=== PATIENT | female | born 1950 | race Caucasian/White ===

== ENCOUNTER 2022-08-20 05:17 | Inpatient (IN) | payer MEDICARE, MEDICAID ==
[2022-08-13 12:25] LABS: BASOPHILS # (AUTO) 0.1 X10'3 (0-0.2); BASOPHILS % (AUTO) 1.1 % (0-1); EOSINOPHILS # (AUTO) 0.1 X10'3 (0-0.9); EOSINOPHILS % (AUTO) 1.7 % (0-6); LYMPHOCYTES # (AUTO) 1.4 X10'3 (1.1-4.8); LYMPHOCYTES % (AUTO) 22.8 % (21-51); MEAN CORPUSCULAR HEMOGLOBIN 26.9 PG (27.0-31.0); MEAN CORPUSCULAR HGB CONC 32.2 g/dL (33.0-36.5); MEAN CORPUSCULAR VOLUME 83.5 FL (78-98); MEAN PLATELET VOLUME 7.8 FL (7.4-10.4); MONOCYTES # (AUTO) 0.3 X10'3 (0-0.9); MONOCYTES % (AUTO) 5.8 % (2-12); NEUTROPHILS # (AUTO) 4.1 X10'3 (1.8-7.7); NEUTROPHILS % (AUTO) 68.6 % (42-75); PRE OP HEMATOCRIT 33.6 % (35.0-45.0); PRE OP PLATELET COUNT 366 X10'3 (140-440); RED BLOOD COUNT 4.02 X10'6 (4.20-5.60); RED CELL DISTRIBUTION WIDTH 13.8 % (11.5-14.5)
[2022-08-13 12:29] LABS: ALBUMIN 3.7 G/DL (3.4-5.0); ALBUMIN/GLOBULIN RATIO 1.1 (1.1-1.5); ALKALINE PHOSPHATASE 98 IU/L (46-116); BLOOD UREA NITROGEN 13 MG/DL (7-18); BUN/CREATININE RATIO 17.3 (6.6-38.0); CALCIUM 8.8 MG/DL (8.5-10.1); CHLORIDE 103 MMOL/L (99-107); CREATININE 0.75 MG/DL (0.40-0.90); PRE OP ALT 17 U/L (30-65); PRE OP ANION GAP 10 (8-16); PRE OP AST 23 U/L (10-37); PRE OP BILIRUB, TOTAL 0.3 MG/DL (0.0-1.0); PRE OP GLUCOSE 96 MG/DL (70-104); PRE OP POTASSIUM 3.7 MMOL/L (3.4-5.1); PRE OP SODIUM 137 MMOL/L (135-145); TOTAL CARBON DIOXIDE 23.7 MMOL/L (24-32); TOTAL PROTEIN 7.1 G/DL (6.4-8.2); eGFR 76 ML/MIN
[2022-08-13 12:32] LABS: PRE OP HEMOGLOBIN 10.8 g/dL (12.0-16.0)
[2022-08-20] VITALS (31 sets, daily range): BP systolic 92–143; BP diastolic 46–84
[~2022-08-20] VITALS: Ht 157.5 cm; Wt 57.6 kg
[~2022-08-20 05:17] MED LIST: NO HOME MEDS; ringers solution, lacted 1,000 ML IV SCH
[2022-08-20] MEDS ORDERED: metoclopramide 5 mg/ml inj IV ONE (05:30)
[2022-08-20] MEDS ORDERED: tranexamic acid inj. 1,000 MG in normal saline IV soln 100ML IV ONE (05:30)
[2022-08-20] MEDS ORDERED: celeCOXIB 100mg capsule PO ONE (05:30)
[2022-08-20] MEDS ORDERED: famotidine 20mg tablet PO ONE (05:30)
[2022-08-20] MEDS ORDERED: oxyCODONE SR 10mg (sust. release) tab -2 tabs (20mg) PO ONE (05:30)
[2022-08-20] MEDS ORDERED: gabapentin 300mg capsule PO ONE (05:30)
[2022-08-20] MEDS ORDERED: vancomycin/NS 1 GM in NS 250 ML IV ONE (05:30)
[2022-08-20] MEDS ORDERED: ceFAZolin inj. 2,000 MG in dextrose 5%-water 100 ML IV ONE (05:30)
[2022-08-20] MEDS ORDERED: acetaminophen 325mg tablet PO ONE (05:30)
--- NOTE | 2022-08-20 05:30 | NUR ---
INITIATED IV IN THE LEFT HAND WITH 20 GAUGE ONE ATTEMPT. STARTED VANCO AND WAITED 10 MINUTES, BEFORE LEAVING ROOM. IV WORKING ADEQUATELY AND VANCO RUNNING WITH NOT COMPLICATIONS.
[2022-08-20] MEDS ORDERED: HYDROmorphone inj. 0.5 MG/0.5 ML DISP.SYRIN IV PRN (05:50)
[2022-08-20] MEDS ORDERED: naloxone 0.4 mg/ml inj IV PRN (05:50)
[2022-08-20] MEDS ORDERED: bisacodyl 10mg suppository rectal RC PRN (05:50)
[2022-08-20] MEDS ORDERED: magnesium hydroxide 30ml (MOM) UD suspension PO PRN (05:50)
[2022-08-20] MEDS ORDERED: HYDROcodone/acetaminophen 10/325mg tab PO PRN (05:50)
[2022-08-20] MEDS ORDERED: acetaminophen 325mg tablet PO PRN (05:50)
[2022-08-20] MEDS ORDERED: HYDROmorphone 1 mg/ml syringe IV PRN (05:50)
[2022-08-20] MEDS ORDERED: ondansetron/PF 4mg/2ml inj IV PRN ×2 (05:50→07:10)
[2022-08-20] MEDS ORDERED: diphenhydrAMINE 25mg capsule PO PRN ×2 (05:50)
[2022-08-20] MEDS ORDERED: ketorolac trometh. 30mg/ml inj. ONE (06:12)
[2022-08-20] MEDS ORDERED: ROPIVAcaine 0.5% (5mg/ml) 30ml vial ONE ×2 (06:13→08:45)
[2022-08-20] MEDS ORDERED: cloNIDine hcl/PF 100mcg/ml inj ONE (06:13)
[2022-08-20] MEDS ORDERED: epiNEPHrine 1 mg/ml inj ONE (06:13)
[2022-08-20] MEDS ORDERED: vancomycin 1,000mg inj ONE (07:03)
[2022-08-20] MEDS ORDERED: MIDAZolam 1mg/ml 10ml vial ONE (07:05)
[2022-08-20] MEDS ORDERED: FENTANYL CITRATE/PF 50 MCG/1 ML VIAL ONE (07:08)
[2022-08-20] MEDS ORDERED: fentaNYL/PF 50MCG/1 ML 2ML syringe IV PRN ×2 (07:10)
[2022-08-20] MEDS ORDERED: morphine 4 MG/ML inj SYRINge IV PRN (07:10)
[2022-08-20] MEDS ORDERED: ringers solution, lacted 1,000 ML IV SCH (07:10)
[2022-08-20] MEDS ORDERED: ROPIVAcaine 0.2% (10 MG/5 ML) BOLUS INJECTION ADDCANAL PRN (07:10)
[2022-08-20] MEDS ORDERED: hydrALAZINE 20mg/ml inj. IV PRN (07:10)
[2022-08-20] MEDS ORDERED: labetalol 20mg/4ml (5mg/ml) syringe IV PRN (07:10)
[2022-08-20] MEDS ORDERED: morphine 2 MG/ML inj. syringe IV PRN (07:10)
[2022-08-20] MEDS ORDERED: cloNIDine hcl/PF 100mcg/ml inj EP ONE (08:01)
[2022-08-20] MEDS ORDERED: epiNEPHrine 1 mg/ml inj SQ ONE (08:01)
[2022-08-20] MEDS ORDERED: ROPIVAcaine 0.5% (5mg/ml) 30ml vial IJ ONE (08:01)
[2022-08-20] MEDS ORDERED: ketorolac trometh. 30mg/ml inj. IV ONE (08:01)
[2022-08-20] MEDS ORDERED: ROPIVAcaine 0.2%/PF PUMP/bolus 545 ML ADDCANAL SCH (08:30)
[2022-08-20] MEDS ORDERED: dexamethasone sod phosphate 4mg/ml inj. ONE (08:45)
--- NOTE | 2022-08-20 08:55 | NUR ---
CSM: PEDAL PULSES PRESENT AND MARKED. MUPIROCIN CREAM WAS NOT ORDERED FOR THIS PATIENT. PATIENT DID NOT WATCH THE VIDEO BUT READ THE BROCHURE. EDUCATED PATIENT ON THE USE OF THE INCENTIVE SPIROMETER.
--- NOTE | 2022-08-20 09:14 | NUR ---
Received from OR via HOSITAL BED , accompanied by Anesthesiologist DR CASTRO and report given by Anesthesiolgist. PT PRESENTS WITH PIV 20G LEFT HAND, RIGHT KNEE WITH TA DRESSING AND WRAP NIKKIE POWDER PACK AND ON-Q READY. PT CO PAIN 0/10. DORSALES PEDUS PALPATED, VSS. Addendum: 08/20/22 at 0926 by Samantha Virgen RN, RN Amended: Links added.
[2022-08-20] MEDS ORDERED: tranexamic acid inj. 600 MG in normal saline 100ml IV soln 94 ML IV ONE (13:00)
--- NOTE | 2022-08-20 13:27 | NUR ---
PT SITTING UPON BED EATING LUNCH. Addendum: 08/20/22 at 1328 by Samantha Virgen RN RN Amended: Links added.
[2022-08-20] MEDS: potassium cl 20mEq in 1/2 NS 1,000 ML IV SCH ×2 (15:00→21:00)
--- NOTE | 2022-08-20 15:18 | NUR ---
received report from romeo freitas in recovery
--- NOTE | 2022-08-20 15:34 | NUR ---
Report called to receiving nurse BALDO ISIDRO. Transferred via HOSPITAL BED TO ROOM 346B. TWO PT BELONGINGS BAGS TO ROOM 346B. BED IN LOW LOCKED POSITION WITH VALL LIGHT IN REACH. BALDO ISIDRO NOTIFIED PT WAS IN ROOM, BALDO ISIDRO GIVEN ANCEF DUE AT 1600. Special Issues communicated to receiving nurse. Addendum: 08/20/22 at 1546 by Samantha Virgen RN RN Amended: Links added.
[2022-08-20] MEDS: ceFAZolin/D5W- 1GM premix 50 ML IV SCH (15:54)
--- NOTE | 2022-08-20 18:25 | NUR ---
Patient in room [facility] 346. I have received report from SANNA Leal and had the opportunity to ask questions and assume patient care.
--- NOTE | 2022-08-20 18:28 | NUR ---
gave report to romeo rothman
[2022-08-20] MEDS ORDERED: vancomycin/NS 1 GM ADD-VANTAGE 250 ML IV SCH (20:00)
[2022-08-20] MEDS: gabapentin 300mg capsule PO SCH (20:54)
[2022-08-20] MEDS: ascorbic acid 500mg tablet PO SCH (20:54)
[2022-08-20] MEDS ORDERED: sennosides 8.6mg tablet PO SCH (21:00)
[2022-08-21] MEDS: ceFAZolin/D5W- 1GM premix 50 ML IV SCH (00:22)
[2022-08-21] MEDS: potassium cl 20mEq in 1/2 NS 1,000 ML IV SCH (01:43)
[2022-08-21 02:00] VITALS: BP 141/70
[2022-08-21] MEDS: HYDROcodone/acetaminophen 10/325mg tab PO PRN ×2 (03:33→07:56)
--- NOTE | 2022-08-21 06:10 | NUR ---
Problems reprioritized. Patient report given, questions answered & plan of care reviewed with SANNA Aquino.
[2022-08-21 06:17] LABS: BASOPHILS % (AUTO) 0.5 % (0-1); EOSINOPHILS % (AUTO) 0.2 % (0-6); HEMATOCRIT 23.9 % (35.0-45.0); HEMOGLOBIN 7.9 g/dl (12.0-16.0); LYMPHOCYTES # (AUTO) 1.1 X10'3 (1.1-4.8); LYMPHOCYTES % (AUTO) 16.1 % (21-51); MEAN CORPUSCULAR HEMOGLOBIN 27.5 PG (27.0-31.0); MEAN CORPUSCULAR VOLUME 83.4 FL (78-98); MEAN PLATELET VOLUME 8.1 FL (7.4-10.4); MONOCYTES % (AUTO) 15.3 % (2-12); NEUTROPHILS # (AUTO) 4.6 X10'3 (1.8-7.7); NEUTROPHILS % (AUTO) 67.9 % (42-75); PLATELET COUNT 235 X10'3 (140-440); RED BLOOD COUNT 2.86 X10'6 (4.20-5.60); RED CELL DISTRIBUTION WIDTH 13.9 % (11.5-14.5); WHITE BLOOD COUNT 6.8 X10'3 (4.5-11.0)
[2022-08-21 06:24] LABS: ANION GAP 5 (8-16); CHLORIDE 106 MMOL/L (99-107); POTASSIUM 3.7 MMOL/L (3.5-5.1); SODIUM 135 MMOL/L (135-145); TOTAL CARBON DIOXIDE 24.3 MMOL/L (24-32)
[2022-08-21 07:06] VITALS: BP 126/50
[2022-08-21 07:19] LABS: PLATELET ESTIMATE NORMAL; TOTAL CELLS COUNTED 100
[2022-08-21] MEDS: ascorbic acid 500mg tablet PO SCH (07:55)
[2022-08-21] MEDS: gabapentin 300mg capsule PO SCH (07:55)
[2022-08-21] MEDS ORDERED: multivitamins, therapeutics tablet PO SCH (08:00)
[2022-08-21] MEDS ORDERED: aspirin 325mg tablet PO SCH (08:30)
--- NOTE | 2022-08-21 09:20 | NUR ---
Pt s/p right TKA, written protein education, ONS coupons, and RD contact information mailed to patient's home address in EMR. Pt getting discharged at this time per EMR. Will remain available. Addendum: 08/21/22 at [address] Amended: Links added.
[2022-08-21 10:00] VITALS: BP 108/43
--- NOTE | 2022-08-21 11:20 | NUR ---
PATIENT DISCHARGED, ANCILLARY WHEELED PATIENT TO FRONT LOBBY WHERE GRAND DAUGHTER WAS WAITING
[2022-08-21] MEDS ORDERED: celeCOXIB 100mg capsule PO SCH (20:00)
== END 2022-08-21 11:49 | disposition home or self-care (01) | DRG 470 ==
LOC: PAS 05:17 → PAS IN 05:52 → UNDOADMIN 05:52 → PACU 05:52 → SUR 3N 15:36
PROVIDERS: ADMIT Orthopaedic Surgery; ATTEND Orthopaedic Surgery
PROC: 3E0T3BZ Introduction of Anesthetic Agent into Peripheral Nerves and Plexi, Percutaneous Approach (ICD-10-PCS; 2022-08-20)
PROC: 3E0T33Z Introduction of Anti-inflammatory into Peripheral Nerves and Plexi, Percutaneous Approach (ICD-10-PCS; 2022-08-20)
PROC: 0SRC0J9 Replacement of Right Knee Joint with Synthetic Substitute, Cemented, Open Approach (ICD-10-PCS; principal; 2022-08-20 07:13)
DX: M17.11 Unilateral primary osteoarthritis, right knee (principal); G43.909 Migraine, unspecified, not intractable, without status migrainosus
CPT/HCPCS: 36415; 73560; 80051; 80053; 82948; 85007; 85025; 86885; 86900; 86901; 87081; 97110; 97116; 97161; 97530; A4215; A6449; A7000; C1713; C1776; G0378; J0171; J0690; J0735; J1100; J1885; J2250; J2765; J2795; J3010; J3370; J3480; J3490; J7060; J7120

== ENCOUNTER 2022-10-21 05:37 | Day surgery (SDC) | payer MEDICARE, MEDICAID ==
[2022-10-16 11:12] LABS: BASOPHILS # (AUTO) 0.1 X10'3 (0-0.2); BASOPHILS % (AUTO) 0.9 % (0-1); EOSINOPHILS # (AUTO) 0.2 X10'3 (0-0.9); LYMPHOCYTES # (AUTO) 1.7 X10'3 (1.1-4.8); LYMPHOCYTES % (AUTO) 29.7 % (21-51); MEAN CORPUSCULAR HEMOGLOBIN 24.2 PG (27.0-31.0); MEAN CORPUSCULAR HGB CONC 31.1 g/dL (33.0-36.5); MEAN CORPUSCULAR VOLUME 77.9 FL (78-98); MEAN PLATELET VOLUME 7.6 FL (7.4-10.4); MONOCYTES # (AUTO) 0.6 X10'3 (0-0.9); MONOCYTES % (AUTO) 10.3 % (2-12); NEUTROPHILS # (AUTO) 3.1 X10'3 (1.8-7.7); NEUTROPHILS % (AUTO) 56.1 % (42-75); PRE OP HEMATOCRIT 30.8 % (35.0-45.0); PRE OP PLATELET COUNT 392 X10'3 (140-440); RED BLOOD COUNT 3.95 X10'6 (4.20-5.60); RED CELL DISTRIBUTION WIDTH 16.2 % (11.5-14.5)
[2022-10-16 11:13] LABS: PRE OP HEMOGLOBIN 9.6 g/dL (12.0-16.0)
[2022-10-16 11:41] LABS: ALBUMIN 3.6 G/DL (3.4-5.0); ALBUMIN/GLOBULIN RATIO 0.9 (1.1-1.5); ALKALINE PHOSPHATASE 107 IU/L (46-116); BLOOD UREA NITROGEN 10 MG/DL (7-18); BUN/CREATININE RATIO 13.2 (6.6-38.0); CALCIUM 9.1 MG/DL (8.5-10.1); CHLORIDE 105 MMOL/L (99-107); CREATININE 0.76 MG/DL (0.40-0.90); PRE OP ALT 13 U/L (30-65); PRE OP ANION GAP 8 (8-16); PRE OP AST 18 U/L (10-37); PRE OP BILIRUB, TOTAL 0.3 MG/DL (0.0-1.0); PRE OP GLUCOSE 96 MG/DL (70-104); PRE OP POTASSIUM 3.7 MMOL/L (3.4-5.1); PRE OP SODIUM 139 MMOL/L (135-145); TOTAL CARBON DIOXIDE 26.1 MMOL/L (24-32); TOTAL PROTEIN 7.4 G/DL (6.4-8.2); eGFR 75 ML/MIN
[~2022-10-21] VITALS: Ht 157.5 cm; Wt 57.1 kg
[2022-10-21] VITALS (8 sets, daily range): BP systolic 137–168; BP diastolic 81–97
[~2022-10-21 05:37] MED LIST changes: +HYDR-3973 PO; -NO HOME MEDS; +famotidine 20mg tablet PO ONE
[2022-10-21] MEDS ORDERED: cloNIDine hcl/PF 100mcg/ml inj ONE (07:08)
[2022-10-21] MEDS ORDERED: sevoflurane 250ml liquid IH ONE (07:08)
[2022-10-21] MEDS ORDERED: morphine 2 MG/ML inj. syringe IV PRN (07:20)
[2022-10-21] MEDS ORDERED: meperidine/PF 25mg/ml syringe IV PRN ×3 (07:20)
[2022-10-21] MEDS ORDERED: ringers solution, lacted 1,000 ML IV SCH (07:20)
[2022-10-21] MEDS ORDERED: ondansetron/PF 4mg/2ml inj IV PRN (07:20)
[2022-10-21] MEDS ORDERED: ketorolac tromethamine 15mg/ml inj. IV ONE (07:20)
[2022-10-21] MEDS ORDERED: labetalol 20mg/4ml (5mg/ml) syringe IV PRN (07:20)
[2022-10-21] MEDS ORDERED: acetaminophen 1,000mg/100ml IV 100 ML IV PRN (07:20)
[2022-10-21] MEDS ORDERED: morphine 4 MG/ML inj SYRINge IV PRN (07:20)
[2022-10-21] MEDS ORDERED: hydrALAZINE 20mg/ml inj. IV PRN (07:20)
[2022-10-21] MEDS ORDERED: proCHLORperazine 10 MG/2 ml inj IV PRN (07:20)
[2022-10-21] MEDS ORDERED: ondansetron/PF 4mg/2ml inj ONE (07:32)
[2022-10-21] MEDS ORDERED: dexamethasone sod phosphate 4mg/ml inj. ONE (07:32)
[2022-10-21] MEDS ORDERED: propofol inj 20 ML IV ONE (07:32)
[2022-10-21] MEDS ORDERED: LIDOcaine 2% (20mg/ml) 5ml vial ONE (07:32)
[2022-10-21] MEDS ORDERED: ROPIVAcaine 0.5% (5mg/ml) 30ml vial ONE (07:32)
--- NOTE | 2022-10-21 07:44 | NUR ---
FROM OR ON GURNEY. SKIN WARM AND DRY. VS, BP ELEVATED BUT DOESN'T MEET PARAMETERS TO MEDICATE. HAD ORAL AIRWAY ON ARRIVAL. OUT ABOUT THREE IL,UTES INTO RECOVERY. LEFT KNEE IS SWOLLEN, ICE APPLIED. SQUIRMING, CRYING, MOANING, GRIMACING. MEDICATED WITH 25 MG OF DEMEROL. PEDAL PULSE STRONG AND PALPABLE.
--- NOTE | 2022-10-21 08:02 | NUR ---
EXCELLENT RESPONSE FROM DEMEROL. RESTING QUIETLY.
--- NOTE | 2022-10-21 08:44 | NUR ---
PATIENT MEETS DISCHARGE CRITERIA. VSS. IV DC'D WITH NO ISSUES. WHEELED PATIENT TO LOBBY AND DAUGHTER IN LAW PICKED HER UP. GLASSES WENT WITH HER. Addendum: 10/21/22 at 0932 by Kelly Ness RN Amended: Links added.
== END 2022-10-21 08:44 | disposition home or self-care (01) ==
LOC: PAS 05:37
PROVIDERS: ATTEND Orthopaedic Surgery
DX: T84.82XA Fibrosis due to internal orthopedic prosthetic devices, implants and grafts, initial encounter (principal); G43.909 Migraine, unspecified, not intractable, without status migrainosus; M19.90 Unspecified osteoarthritis, unspecified site; G89.18 Other acute postprocedural pain; Z87.440 Personal history of urinary (tract) infections; Z90.710 Acquired absence of both cervix and uterus; Z79.899 Other long term (current) drug therapy; Y83.8 Other surgical procedures as the cause of abnormal reaction of the patient, or of later complication, without mention of misadventure at the time of the procedure; Y92.89 Other specified places as the place of occurrence of the external cause
CPT/HCPCS: 27570; 36415; 64447; 80053; 82948; 85025; J0131; J0735; J1100; J1885; J2175; J2405; J2704; J2795; J3490; J7120; Z7506; Z7512; A4618